=== PATIENT | male | born 1955 | race Caucasian/White ===

== ENCOUNTER 2019-04-01 12:15 | Outpatient (CLI) | payer OTHER ==
--- NOTE | 2019-04-01 13:03 | RAD ---
LEFT FOOT THREE VIEWS: HISTORY: Left foot pain. FINDINGS: An oblique fracture involves the proximal shaft of the 5th metatarsal. No intraarticular involvement . Lisfranc joint alignment is anatomic. Osteophytosis is mild throughout the foot. Achilles enthes ophyte at the posterior aspect of the calcaneus. IMPRESSION: Nondisplaced Sharif fracture, right 5th metatarsal base. POS: CET
== END 2019-04-01 12:16 | disposition home or self-care (01) ==
LOC: NAV RAD 12:15
PROVIDERS: ATTEND Nurse Practitioner Adult Health
DX: M79.671 Pain in right foot (principal); S92.354A Nondisplaced fracture of fifth metatarsal bone, right foot, initial encounter for closed fracture

== ENCOUNTER 2019-11-18 18:04 | Emergency (ER) | payer OTHER ==
--- NOTE | 2019-11-18 18:38 | RAD ---
Left hand:3 views. INDICATIONS:Injury with pain. COMPARISON:None FINDINGS: Degenerative change the first carpal metacarpal joint. Narrowing and mild DJD at the MCP joints. Severe DJD at the DIP joints of the index finger and middle finger. No evidence of fracture. No soft tissue abnormality. IMPRESSION: Findings suggest erosive osteoarthritis
--- NOTE | 2019-11-18 18:53 | RAD ---
RIGHT HAND: 11/18/19 Three views. HISTORY: Hand pain. Moderate DJD at the first carpometacarpal. MCP joints unremarkable. Mild DJD at the PIP and DIP joint s. Most pronounced at the DIP joint of the index finger. No fracture or acute abnormality. IMPRESSION: Degenerative arthritic changes as described. POS: OFF
== END 2019-11-18 19:25 | disposition home or self-care (01) ==
LOC: NAV ERS 18:04
DX: M19.042 Primary osteoarthritis, left hand (principal); M19.041 Primary osteoarthritis, right hand; I10 Essential (primary) hypertension; E66.01 Morbid (severe) obesity due to excess calories; J45.909 Unspecified asthma, uncomplicated; Z79.82 Long term (current) use of aspirin; Z79.899 Other long term (current) drug therapy

== ENCOUNTER 2022-10-22 11:12 | Outpatient (CLI) | payer MEDICARE | END 2022-10-22 11:13 | disposition home or self-care (01) | LOC: NAV ERS 11:12 | PROVIDERS: ATTEND Neurological Surgery | DX: M25.551 Pain in right hip (principal); M16.11 Unilateral primary osteoarthritis, right hip ==